=== PATIENT | female | born 1965 | race Caucasian/White ===

== ENCOUNTER → 2024-02-11 13:26 | Outpatient (REF) | payer BC, SELFPAY ==
[2024-02-11 14:01] LABS: % Basophils 0.3 % (0-2); % Eosinophils 1.2 % (0-6); % Immature Granulocytes 0.2 % (0-0.5); % Lymphocytes 27.4 % (20.5-51.1); % Monocytes 6.2 % (1.7-9.3); % Neutrophils 64.7 % (42.2-75.2); Absolute Eosinophils 0.1 10^3/uL (0-0.7); Absolute Lymphocytes 1.6 10^3/uL (1.2-3.4); Absolute Monocytes 0.4 10^3/uL (0.1-0.6); Absolute Neutrophils 3.8 10^3/uL (1.4-6.5); Hematocrit 39.6 % (37.0-47.0); Hemoglobin 13.1 g/dL (12.0-16.0); Mean Corp Hgb Conc. 33.1 g/dL (33.0-37.0); Mean Corpuscular Hgb 30.2 pg (27.0-31.0); Mean Corpuscular Volume 91.2 fL (81.0-99.0); Mean Platelet Volume 10.7 fL (7.4-10.4); Nucleated Red Blood Cells % 0 %; Platelet Count 288 10^3/uL (130-400); Red Blood Cell Count 4.34 10^6/uL (4.20-5.40); White Blood Cell Count 5.8 10^3/uL (4.8-10.8)
[2024-02-11 14:10] LABS: ALT (SGPT) 26 U/L (0-35); AST (SGOT) 28 U/L (14-36); Albumin 4.4 g/dl (3.5-5.0); Alkaline Phosphatase 69 U/L (38-126); Blood Urea Nitrogen 21 mg/dl (7-17); Calcium 9.6 mg/dl (8.4-10.2); Carbon Dioxide 27 mmol/L (22-30); Chloride 105 mmol/L (98-107); Glucose 85 mg/dl (70-99); HDL Cholesterol 57 mg/dl; Iron 134 ug/dl (37-170); LDL Cholesterol, Calculated 145 mg/dl; Potassium 4.5 mmol/L (3.5-5.1); Sodium 143 mmol/L (135-145); Total Bilirubin 0.5 mg/dl (0.2-1.3); Total Cholesterol 234 mg/dl (50-199); Total Protein 7.1 g/dl (6.3-8.2); Triglyceride 164 mg/dl (10-149); Very Low Density Lipoprotein 32 mg/dl (0-30); eGFR > 60.00
[2024-02-11 14:19] LABS: Percent Saturation 55 % (20-50); Total Iron Binding Capacity 243 ug/dl (265-497)
[2024-02-11 14:27] LABS: Vitamin D, 25-OH*** 116 ng/mL (30-80)
[2024-02-11 14:41] LABS: TSH 0.75 uIU/ml (0.47-4.68)
== END ==
LOC: CLAB 13:26
PROVIDERS: ATTENDING PHYSICIAN Family Medicine
DX: I10 Essential (primary) hypertension (principal); D50.9 Iron deficiency anemia, unspecified; E78.2 Mixed hyperlipidemia; E55.9 Vitamin D deficiency, unspecified
CPT/HCPCS: 80053; 80061; 82306; 82728; 83540; 83550; 84443; 85025

== ENCOUNTER → 2024-06-05 07:42 | Outpatient (REF) | payer BC, SELFPAY ==
[2024-06-05 09:48] LABS: Blood Urea Nitrogen 18 mg/dl (7-17); Calcium 9.9 mg/dl (8.4-10.2); Carbon Dioxide 27 mmol/L (22-30); Chloride 105 mmol/L (98-107); Glucose 100 mg/dl (70-99); Potassium 4.1 mmol/L (3.5-5.1); Sodium 140 mmol/L (135-145); eGFR > 60.00
[2024-06-05 09:58] LABS: Vitamin D, 25-OH*** 110 ng/mL (30-80)
== END ==
LOC: HWLAB 07:42
PROVIDERS: ATTENDING PHYSICIAN Specialist; FAMILY PHYSICIAN Family Medicine
DX: E55.9 Vitamin D deficiency, unspecified (principal); N28.9 Disorder of kidney and ureter, unspecified; N20.0 Calculus of kidney
CPT/HCPCS: 36415; 80048; 82306

== ENCOUNTER → 2024-06-16 07:00 | Outpatient (REF) | payer BC, SELFPAY | LOC: RAD 07:00 | PROVIDERS: ATTENDING PHYSICIAN Specialist; FAMILY PHYSICIAN Family Medicine | DX: N20.1 Calculus of ureter (principal) | CPT/HCPCS: 74178; Q9967 ==